=== PATIENT | female | born 1985 | race Caucasian/White ===

== ENCOUNTER → 2021-03-17 | Outpatient (CLI) | payer OTHER ==
[2021-03-17 23:19] LABS: Basophils # (A) 0.03 X 10*3/uL (0.00-0.10); Basophils % (A) 0.3 %; Eosinophils # (A) 0.11 X 10*3/uL (0.04-0.35); Eosinophils % (A) 1.1 %; HCT 42.7 % (37.2-46.3); HGB 14.4 g/dL (12.0-15.0); Lymphocytes # (A) 3.16 X 10*3/uL (0.90-5.00); Lymphocytes % (A) 31.5 %; MCH 30.9 pg (27.0-32.0); MCHC 33.7 g/dL (32.0-37.0); MCV 91.6 fL (80.0-97.0); Monocytes # (A) 0.64 X 10*3/uL (0.20-1.00); Monocytes % (A) 6.4 %; Neutrophils # (A) 6.04 X 10*3/uL (1.80-7.70); Neutrophils % (A) 60.3 %; Platelet Count 339 X 10*3/uL (140-440); RBC 4.66 X 10*6/uL (4.10-5.20); RDW 12.4 % (11.5-14.5); WBC 10.02 X 10*3/uL (4.50-10.00)
[2021-03-18 01:21] LABS: Erythrocyte Sedimentation Rate 17 mm/Hr (0-20)
[2021-03-18 23:03] LABS: % Iron Saturation 16.52 (12.00-45.00); Chol/HDL Ratio 4.87 Ratio; Iron 69 ug/dL (50-170); LDL Cholesterol,Calculated 147.2 mg/dL (0.0-131.0); Total Iron Binding Capacity 416 ug/dL (228-460)
[2021-03-19 12:34] LABS: HLA B27 NEGATIVE
== END | disposition home or self-care (01) ==
LOC: LABWHC1 16:00
PROVIDERS: ATTEND Internal Medicine
DX: M25.50 Pain in unspecified joint (principal); R13.10 Dysphagia, unspecified; R53.83 Other fatigue
CPT/HCPCS: 36415; 80053; 80061; 80069; 82306; 82607; 83540; 83550; 84439; 84443; 84481; 85025; 85652; 86812

== ENCOUNTER → 2021-04-18 | Outpatient (CLI) | payer OTHER ==
--- NOTE | 2021-04-18 14:00 | US ---
EXAMINATION TYPE: US pelvic complete DATE OF EXAM: 04/18/2021 COMPARISON: US CLINICAL HISTORY: N94.6 dysmenorrhea; excessive menses; takes medication/inhaler; TECHNIQUE: Transvaginal (TV) and Transabdominal (TA) . Transabdominal sonographic images of the pel vis were acquired. Transvaginal sonographic images were medically necessary to better assess the fol lowing anatomy: endometrium Date of LMP: 04/12/2021 EXAM MEASUREMENTS: Uterus: 8.3 x 5.9 x 4.3 cm Endometrial Stripe: 0.5 cm Right Ovary: 2.25 x 2.5 x 2.0 cm Left Ovary: 2.7 x 1.9 x 2.1 cm 1. Uterus: anteverted; tampon is noted in vaginal canal on TA US; small complex Nabothian Cyst in ce rvix = 0.5 x 0.5 x 0.4cm. 2. Endometrium: thickness is wnl for day 7 LMP. 3. Right Ovary: multiple follicles with largest = 1.1 x 0.47 x 0.7cm 4. Left Ovary: multiple small follicles noted; multiple peripheral calcifications seen 5. Bilateral Adnexa: wnl 6. Posterior cul-de-sac: wnl IMPRESSION: 1. Bilateral ovarian follicles.
== END | disposition home or self-care (01) ==
LOC: RADUSWWP 12:17
PROVIDERS: ATTEND Internal Medicine
DX: N94.6 Dysmenorrhea, unspecified (principal)
CPT/HCPCS: 76830; 76856